=== PATIENT | female | born 1960 | race Caucasian/White ===

== ENCOUNTER 2019-08-02 12:45 | Outpatient (CLI) | payer OTHER ==
--- NOTE | 2019-08-02 14:42 | XRAY Report ---
Reason: COUGH Procedure Date: 08/02/2019 Accession Number: [id number] / [id number] Procedure: XR - Chest 2 View X-Ray CPT Code: 82823 Final Report FULL RESULT: EXAM: CHEST RADIOGRAPHY EXAM DATE: 08/02/2019 01:50 PM. CLINICAL HISTORY: COUGH. COMPARISON: None available. TECHNIQUE: 2 views. FINDINGS: Heart size is normal. Calcified plaque in the aortic arch. The lungs are hypoexpanded, which accentuates the bronchovascular markings. No consolidation, pleural effusion, or pneumothorax. Mild asymmetric elevation of the right hemidiaphragm. Mild dextroconvex curvature of the thoracic spine. IMPRESSION: 1. Low lung volumes. No evidence of focal pneumonia. 2. Accentuated bronchovascular markings could be artifactual and related to low lung volumes. Lower respiratory tract infection would be difficult to entirely exclude. [facility] The call report notification system was initiated by Dr. Jay Tang at 02:41 PM on 08/02/2019.
== END 2019-08-02 12:46 | disposition home or self-care (01) ==
LOC: DI 12:45
PROVIDERS: ATTEND Internal Medicine
DX: R05 Cough (principal)
CPT/HCPCS: 71046